=== PATIENT | male | born 2000 | race African-American/Black ===

== ENCOUNTER 2018-04-30 00:36 | Emergency (ER) | payer OTHER ==
[2018-04-30] MEDS ORDERED: predniSONE 20 MG TAB ONE (00:53)
== END 2018-04-30 01:01 | disposition home or self-care (01) ==
LOC: ERS 00:36
DX: S60.561A Insect bite (nonvenomous) of right hand, initial encounter (principal); T78.40XA Allergy, unspecified, initial encounter; W57.XXXA Bitten or stung by nonvenomous insect and other nonvenomous arthropods, initial encounter
CPT/HCPCS: 99283; J7506

== ENCOUNTER 2018-06-13 19:21 | Emergency (ER) | payer OTHER ==
[2018-06-13] MEDS ORDERED: Ketorolac Tromethamine 30 MG/ML VIAL ONE (20:09)
--- NOTE | 2018-06-13 20:24 | RAD ---
LEFT KNEE FOUR VIEWS: History: Fall. Left knee injury. FINDINGS: Joint spaces are preserved. No acute fracture, dislocation, or fluid distention of the suprapatellar bursa. IMPRESSION: No acute osseous abnormalities are demonstrated. POS: [facility]
== END 2018-06-13 20:47 | disposition home or self-care (01) ==
LOC: ERS 19:21
DX: M25.562 Pain in left knee (principal)
CPT/HCPCS: 96372; J1885